=== PATIENT | male | born 1970 | race Caucasian/White ===

== ENCOUNTER → 2024-07-08 14:41 | Outpatient (REF) | payer BC, SELFPAY | LOC: RCS 14:41 | PROVIDERS: ATTENDING PHYSICIAN Internal Medicine Cardiovascular Disease; FAMILY PHYSICIAN Internal Medicine Geriatric Medicine | DX: R06.09 Other forms of dyspnea (principal); R94.31 Abnormal electrocardiogram [ECG] [EKG] | CPT/HCPCS: 93017; 93350; Q9950 ==